=== PATIENT | female | born 1970 ===

== ENCOUNTER 2018-02-15 07:36 | Emergency (ER) | payer OTHER ==
[2018-02-15] MEDS ORDERED: Sodium Chloride 0.9% 1,000 ML IV STA (08:07)
[2018-02-15 08:08] VITALS: BP 117/48; O2SAT 99; BMI 32.9
--- NOTE | 2018-02-15 08:13 | ED PDOC ---
Arrival/HPI - General Chief Complaint: Abdominal Pain Time Seen by Provider: 02/15/18 07:44 Historian: Patient, Family (Daughter present to translate) - History of Present Illness Narrative History of Present Illness (Text): 02/15/18 08:10 47 year old female, with a past medical history that includes hypertension, diabetes, and asthma, presents to the emergency department with epigastric abdominal pain, since 3 days. Patient states pain causes her to feel nausea. Patient also localizes pain and states it does not radiate from epigastric region. Patient also states pain is associated with lightheadedness and dizziness. Patient denies any fever, chills, headache, chest pain, shortness of breath, cough, vomiting, diarrhea, back pain, neck pain, urinary/bowel changes, or any other complaint. Time/Duration: < week (Onset of pain 3 days) Symptom Onset: Gradual Symptom Course: Unchanged Quality: Aching Activities at Onset: Light Context: Home Past Medical History - Provider Review Nursing Documentation Reviewed: Yes Family/Social History - Physician Review Nursing Documentation Reviewed: Yes Family/Social History: No Known Family HX Allergies/Home Meds Allergies/Adverse Reactions: Allergies aspirin Allergy (Verified 02/15/18 08:07) URTICARIA Penicillins Allergy (Verified 02/15/18 08:07) URTICARIA Review of Systems - Physician Review All systems were reviewed & negative as marked: Yes - Review of Systems Constitutional: Normal. absent: Fevers, Night Sweats Eyes: Normal ENT: Normal Respiratory: Normal. absent: SOB, Cough Cardiovascular: Normal. absent: Chest Pain Gastrointestinal: Abdominal Pain (Epigastric), Nausea. absent: Diarrhea, Vomiting Genitourinary Female: Normal Musculoskeletal: Normal. absent: Back Pain, Neck Pain Skin: Normal Neurological: Normal. absent: Headache, Dizziness Endocrine: Normal Hemo/Lymphatic: Normal Psychiatric: Normal Physical Exam Vital Signs Reviewed: Yes Vital Signs Temp Pulse Resp BP Pulse Ox 02/15/18 10:42 98.0 F 87 18 99 02/15/18 08:08 98.3 F 88 17 117/48 L 99 02/15/18 08:07 98.3 F 88 17 117/48 L 99 Temperature: Afebrile Blood Pressure: Normal Pulse: Regular Respiratory Rate: Normal Appearance: Positive for: Well-Appearing, Non-Toxic, Comfortable Pain Distress: None Mental Status: Positive for: Alert and Oriented X 3 - Systems Exam Head: Present: Atraumatic, Normocephalic Pupils: Present: PERRL Extroacular Muscles: Present: EOMI Conjunctiva: Present: Normal Mouth: Present: Moist Mucous Membranes Neck: Present: Normal Range of Motion Respiratory/Chest: Present: Clear to Auscultation, Good Air Exchange. No: Respiratory Distress, Accessory Muscle Use Cardiovascular: Present: Regular Rate and Rhythm, Normal S1, S2. No: Murmurs Abdomen: Present: Tenderness (Epigastric Tenderness). No: Distention, Peritoneal Signs Back: Present: Normal Inspection Upper Extremity: Present: Normal Inspection. No: Cyanosis, Edema Lower Extremity: Present: Normal Inspection. No: Edema Neurological: Present: GCS=15, CN II-XII Intact, Speech Normal Skin: Present: Warm, Dry, Normal Color. No: Rashes Psychiatric: Present: Alert, Oriented x 3, Normal Insight, Normal Concentration Medical Decision Making ED Course and Treatment: 02/15/18 08:09 Impression: 47 year old female presents to the emergency department with epigastric pain. condider gastritis pancreatitis pud Plan: -- Labs -- Urinalysis -- Zofran -- Protonix -- Reassess and disposition Prior Visits: Notes and results from previous visits were reviewed. Progress Notes: 02/15/18 15:47 durng ed course, pt observed in nad. abd pain resolved. pt later reports dizziness as room spinning. additional imaging and meclizine ordered. pt later resassesed states feel well for dc. steady gait neuro intact. pt offered additioanl obs, possible mri, declines asking for dc. - Lab Interpretations Lab Results: 02/15/18 08:30 02/15/18 08:30 Lab Results 02/15/18 08:30: Sodium 142, Potassium 4.2, Chloride 105, Carbon Dioxide 28, Anion Gap 14, BUN 14, Creatinine 0.6 L, Est GFR ( Amer) > 60, Est GFR ( Non-Af Amer) > 60, Random Glucose 103, Calcium 8.8, Magnesium 1.9, Total Bilirubin 0.5, AST 29, ALT 37, Alkaline Phosphatase 80, Total Protein 7.4, Albumin 4.2, Globulin 3.2, Albumin/Globulin Ratio 1.3, Lipase 68 02/15/18 08:30: Urine Color Yellow, Urine Appearance Clear, Urine pH 6.0, Ur Specific Ponder >= 1.030, Urine Protein Trace H, Urine Glucose (UA) Negative, Urine Ketones Negative, Urine Blood Trace-intact H, Urine Nitrate Negative, Urine Bilirubin Negative, Urine Urobilinogen 0.2, Ur Leukocyte Esterase Negative , Urine RBC 0 - 2, Urine WBC 0 - 2, Ur Epithelial Cells 1 - 3, Urine Bacteria Trace, Urine HCG, Qual Negative 02/15/18 08:30: PT 12.7 H, INR 1.10, APTT 29.8 02/15/18 08:30: WBC 6.9, RBC 5.00, Hgb 12.2, Hct 38.0, MCV 76.0 L, MCH 24.4 L, MCHC 32.1, RDW 16.5 H, Plt Count 337, MPV 10.0, Gran % 64.4, Lymph % (Auto) 25.5 , [place] % (Auto) 7.8 H, Eos % (Auto) 2.0, Baso % (Auto) 0.3, Gran # 4.45, Lymph # (Auto) 1.8, [place] # (Auto) 0.5, Eos # (Auto) 0.1, Baso # (Auto) 0.02 - RAD Interpretation Radiology Orders: 02/15/18 08:53 HEAD W/O CONTRAST [CT] Stat - Medication Orders Current Medication Orders: Discontinued Medications Sodium Chloride (Sodium Chloride 0.9%) 1,000 mls @ 1,000 mls/hr IV .Q1H STA Stop: 02/15/18 09:06 Last Admin: 02/15/18 08:40 Dose: 1,000 mls/hr eMAR Start Stop Document 02/15/18 08:40 (Rec: 02/15/18 08:41 [id number] Intravenous Solution Start Date 02/15/18 Start Time 08:40 Meclizine HCl (Antivert) 25 mg PO STAT STA Stop: 02/15/18 08:54 Last Admin: 02/15/18 09:41 Dose: 25 mg Ondansetron HCl (Zofran Inj) 4 mg IVP STAT STA Stop: 02/15/18 08:08 Last Admin: 02/15/18 08:40 Dose: 4 mg IVP Administration Document 02/15/18 08:40 (Rec: 02/15/18 08:40 [facility]-[id number]) Charges for Administration # of IVP Administrations 1 Pantoprazole Sodium (Protonix Inj) 40 mg IVP STAT STA Stop: 02/15/18 08:08 Last Admin: 02/15/18 08:40 Dose: 40 mg IVP Administration Document 02/15/18 08:40 (Rec: 02/15/18 08:40 [facility]-[id number]) Charges for Administration # of IVP Administrations 1 - Scribe Statement The provider has reviewed the documentation as recorded by the Scribe Kings Watkins All medical record entries made by the Scribe were at my direction and personally dictated by me. I have reviewed the chart and agree that the record accurately reflects my personal performance of the history, physical exam, medical decision making, and the department course for this patient. I have also personally directed, reviewed, and agree with the discharge instructions and disposition. Disposition/Present on Arrival - Present on Arrival Any Indicators Present on Arrival: No - Disposition Have Diagnosis and Disposition been Completed?: Yes Diagnosis: Dizziness, Abdominal pain Disposition: HOME/ ROUTINE Disposition Time: 10:00 Condition: STABLE Discharge Instructions (ExitCare): Vertigo (a Type of Dizziness), Acute Abdomen (Belly Pain), Dizziness, Nonvertigo, (DC) Print Language: MICRONESIAN Additional Instructions: please follow up with your doctor/specialist. return to er with worsening symptoms or concersn. Prescriptions: Famotidine [Pepcid] 20 mg PO DAILY #20 tab Meclizine [Antivert] 25 mg PO Q6 PRN #30 tab PRN Reason: Dizziness Referrals: [facility] [Outside] - Follow up with primary [facility] [place] [Outside] - Follow up with primary Avi Haines DO [Primary Care Provider] - Follow up with primary Abram Patel MD [Staff Provider] - Follow up with primary Abner French MD [Staff Provider] - Follow up with primary Owen Young DO [Staff Provider] - Follow up with primary Forms: [employer] (Lao)
[2018-02-15 08:40] LABS: BASO # 0.02 K/mm3 (0.0-2.0); BASO % 0.3 % (0.0-3.0); EOS # 0.1 (0.0-0.7); GRAN # 4.45 (1.4-6.5); GRAN % 64.4 % (50.0-68.0); HEMOGLOBIN 12.2 g/dL (12.0-16.0); LYMPH # 1.8 (1.2-3.4); LYMPH % 25.5 % (22.0-35.0); MEAN CORPUSCULAR HEMOGLOBIN 24.4 pg (25.0-35.0); MEAN CORPUSCULAR HGB CONC 32.1 g/dl (31.0-37.0); MONO # 0.5 (0.1-0.6); MONO % 7.8 % (1.0-6.0); RED CELL DISTRIBUTION WIDTH 16.5 % (11.5-14.5); WHITE BLOOD COUNT 6.9 10^3/ul (4.5-11.0)
[2018-02-15 08:42] LABS: URINE BILIRUBIN NEGATIVE (NEGATIVE); URINE BLOOD TRACE-INTACT (NEGATIVE); URINE GLUCOSE (UA) NEGATIVE (NEGATIVE); URINE LEUKOCYTE ESTERASE NEGATIVE Leu/uL (NEGATIVE); URINE PROTEIN TRACE mg/dL (<30 mg/dL); URINE UROBILINOGEN 0.2 E.U./dL (<1 E.U./dL)
[2018-02-15 08:44] LABS: URINE APPEARANCE CLEAR (CLEAR); URINE COLOR YELLOW (YELLOW)
[2018-02-15 08:47] LABS: HCG,QUALITATIVE URINE NEGATIVE (NEGATIVE)
[2018-02-15 08:50] LABS: ALB/GLOB RATIO 1.3 (1.1-1.8); ALBUMIN 4.2 g/dL (3.0-4.8); ALT/SGPT 37 U/L (7-56); AST/SGOT 29 U/L (14-36); BLOOD UREA NITROGEN 14 mg/dL (7-21); CALCIUM 8.8 mg/dL (8.4-10.5); GFR AFRICAN-AMERICAN > 60; GFR NON-AFRICAN AMERICAN > 60; INR 1.1; LIPASE 68 U/L (23-300); PARTIAL THROMBOPLASTIN TIME 29.8 Seconds (25.1-36.5); PROTHROMBIN TIME 12.7 SECONDS (9.4-12.5)
[2018-02-15 09:03] LABS: URINE BACTERIA TRACE (NEG); URINE RBC 0 - 2 /hpf (0-2); URINE WBC 0 - 2 /hpf (0-6)
--- NOTE | 2018-02-15 10:14 | CT ---
Date of service: 02/15/2018 PROCEDURE: CT HEAD WITHOUT CONTRAST. HISTORY: dizziness COMPARISON: None available. TECHNIQUE: Axial computed tomography images were obtained through the head/brain without intravenous contrast. Radiation dose: Total exam DLP = 900 mGy-cm. This CT exam was performed using one or more of the following dose reduction techniques: Automated exposure control, adjustment of the mA and/or kV according to patient size, and/or use of iterative reconstruction technique. FINDINGS: HEMORRHAGE: No intracranial hemorrhage. BRAIN: No mass effect or edema. No atrophy or chronic microvascular ischemic changes. VENTRICLES: Unremarkable. No hydrocephalus. CALVARIUM: Unremarkable. PARANASAL SINUSES: Unremarkable as visualized. No significant inflammatory changes. MASTOID AIR CELLS: Unremarkable as visualized. No inflammatory changes. OTHER FINDINGS: None. IMPRESSION: No acute findings
[2018-02-15 10:43] VITALS: PULSE 87; RESP 18; TEMP 98
== END 2018-02-15 10:43 | disposition home or self-care (01) ==
LOC: ED 07:36
DX: R42 Dizziness and giddiness (principal); R10.13 Epigastric pain; E11.9 Type 2 diabetes mellitus without complications; I10 Essential (primary) hypertension
CPT/HCPCS: 70450; 80053; 81001; 83690; 83735; 84703; 85025; 85610; 85730; 96374; 96375; 99283; C9113; J2405; J7030